=== PATIENT | female | born 1995 | race Caucasian/White ===

== ENCOUNTER 2024-06-14 14:56 | Emergency (ER) | payer SELFPAY ==
[2024-06-14] VITALS (8 sets, daily range): BP systolic 130–157; BP diastolic 82–91; PULSE 61–88; RESP 16–20; TEMP 36.2–36.8; O2SAT 95–100; BMI 26.6
--- NOTE | ~2024-06-14 | XR_ITS ---
EXAMINATION: XR CHEST 2 VIEWS HISTORY: pain COMPARISON: There are no prior studies for comparison. FINDINGS: PA and lateral views of the chest are submitted. The lungs are expanded and clear. There is no pleural effusion, pneumothorax, or pulmonary vascular congestion. The heart is normal in size. The bones are intact. XR/XR chest 2V IMPRESSION: Normal examination of the chest. Electronically signed by: Sumit Perdomo MD 06/14/2024 03:53 PM EDT
--- NOTE | 2024-06-14 15:02 | ED_ITS ---
HPI - General Adult General Chief complaint: Dizziness Stated complaint: Lightheaded, dizziness Time Seen by Provider: 06/14/24 19:10 Source: patient Limitations: no limitations History of Present Illness ED Provider: Mariaelena Rider PA-C HPI narrative: 28-year-old otherwise healthy female presents after near syncopal episode. Patient states she is just getting over viral syndrome, she has not been eating or drinking well. She was sitting in her vehicle, when she felt nauseous. Patient states she felt lightheaded, then sweaty, as if she were going to pass out. The patient states she began to panic, feeling as if ?she was going to ?. 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 Denies preceding palpitations, chest pain or shortness of breath. Related Data Allergies Allergy/AdvReac Type Severity Reaction Status Date / Time No Known Allergies Allergy Verified 06/14/24 15:06 Review of Systems 2 Review of Systems: Yes all other systems are reviewed and are negative Constitutional: Constitutional: Denies fatigue, Denies fever(s) and Reports malaise ENT: Reports dizziness Cardiovascular: Cardiovascular: Denies chest pain, Denies palpitations and Denies dyspnea Respiratory: Respiratory: Denies cough and Denies dyspnea Gastrointestinal: Gastrointestinal: Denies abdominal pain, Reports nausea and Denies vomiting Neurologic: Reports dizziness Endocrine: Endocrine: Denies fatigue and Denies palpitations PMF Past Medical History Attestation statement: The following information was validated with the patient. Social History Social History Smoked in Last 30 Days: No Use of substances other than those prescribed or required for medical reasons: No Advance Directives: No Advance Directives Information Provided: No Patient : No Physical Exam ED Vital Signs: Vital Signs - 24 hr 06/14/24 15:03 06/14/24 17:23 06/14/24 18:44 Temperature 97.5 F 97.1 F 97.6 F Pulse Rate 88 64 70 Respiratory Rate 18 16 16 Blood Pressure 142/86 H 157/82 H 142/83 H Pulse Oximetry 100 99 95 Oxygen Delivery Method Room Air Room Air Room Air 06/14/24 20:18 06/14/24 20:47 06/14/24 20:49 Temperature 97.5 F Pulse Rate 68 61 64 Respiratory Rate 20 Blood Pressure 130/86 138/83 145/87 H Pulse Oximetry 95 Oxygen Delivery Method Room Air 06/14/24 20:50 06/14/24 21:17 Temperature 98.2 F Pulse Rate 75 75 Respiratory Rate 17 Blood Pressure 138/91 H 138/91 H Pulse Oximetry 98 Oxygen Delivery Method Room Air BMI result Body Mass Index 26.6 Const Other: Alert well-appearing Orientation/consciousness: patient oriented x3 Resp Effort & Inspection: normal respiratory effort Cardio Other: Normal peripheral perfusion Skin Other: Warm dry no rash Neuro General: patient oriented x3, gait normal, no focal motor deficits and CN's II- XI intact bilaterally Psych Other: Cooperative Course Course Course Narrative: RME, this is a rapid medical exam performed by Perry Nick please refer to primary provider for complete H&P- 28 year old female presents for evaluation of palliations, anxiousness. She reports that she was waiting in a car when she felt a sudden onset of palpitations, clamminess, and feeling cold. She felt disoriented. This has never happened before. Plan for EKG and labs Medical Decision Making Medical Decision Making MDM Narrative: 28-year-old otherwise healthy female presents after near syncopal episode. Patient states she is just getting over viral syndrome, she has not been eating or drinking well. She was sitting in her vehicle, when she felt nauseous. Patient states she felt lightheaded, then sweaty, as if she were going to pass out. The patient states she began to panic, feeling as if ?she was going to ?. 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 Denies preceding palpitations, chest pain or shortness of breath. No chronic issues History: Per patient I have considered the following differential diagnoses: Anemia, dehydration, electrolyte abnormality, vasovagal syncope, new arrhythmia, orthostatic hypotension Plan: Screening labs were obtained from triage, she is not dehydrated she is not anemic there were no electrolyte abnormalities. She has no new arrhythmia on the EKG, she is not orthostatic. I believe she had a vasovagal episode in the setting of being nauseous and in a hot car. I think this episode precipitated a panic attack. She is young and otherwise healthy and had no concerning preceding symptoms. She can follow up with the primary care provider. I have independently reviewed the following tests: CXR: XR/XR chest 2V IMPRESSION: Normal examination of the chest. Labs: No leukocytosis, not anemic, no electrolyte abnormality, viral panel negative, not EKG: Normal sinus rhythm, rate 88, no ischemic changes no ectopy, QTC 4-1 Lab Data 06/14/24 15:17 06/14/24 15:17 Labs: Lab Results 06/14/24 Range/Units 15:17 WBC 5.5 (4.8-10.8) X10*3/uL RBC 4.51 (4.20-5.50) X10*6/uL Hgb 13.9 (12.0-16.0) g/dl Hct 39.8 (37.0-47.0) % MCV 88.2 (80.0-98.0) fL MCH 30.8 (27.0-33.0) pg MCHC 34.9 (31.0-35.0) g/dl RDW 11.4 (11.0-16.0) % Plt Count 220 (160-400) X10*3/uL MPV 9.7 (9.4-12.3) fL Immature Gran % (Auto) 0.2 (0.0-0.4) % Neut % (Auto) 64.2 (45-73) % Lymph % (Auto) 24.5 (20-40) % [place] % (Auto) 8.2 (2-11) % Eos % (Auto) 2.5 (0-4) % Baso % (Auto) 0.4 (0-2) % Lymph # (Auto) 1.4 (1.2-4.9) X10*3/uL [place] # (Auto) 0.5 (0.1-1.2) X10*3/uL Eos # (Auto) 0.1 (0.0-0.4) X10*3/uL Baso # (Auto) 0.0 (0.0-0.2) X10*3/uL Abs Immat Gran (auto) 0.01 (0.00-0.03) X10*3/uL Absolute Neuts (auto) 3.5 (2.0-8.3) x10*3/uL Absolute Nucleated RBC 0.000 (0.0-0.012) X10*3/uL Nucleated RBC % (auto) 0.0 (0.0-0.2) /100WBC Sodium 142 (135-145) mmol/L Potassium 4.2 (3.3-5.1) mmol/L Chloride 109 H (96-108) mmol/L Carbon Dioxide 25 (22-29) mmol/L Anion Gap 12 (12-20) BUN 11 (9-16) mg/dL Creatinine 0.72 (0.5-1.4) mg/dL Estim Creat Clear Calc 118.1 Estimated GFR > 60 Random Glucose 134 H (60-115) mg/dL Calcium 9.8 (8.4-10.2) mg/dL Magnesium 1.6 (1.6-2.6) mg/dL Total Bilirubin 0.3 (0.0-1.0) mg/dL AST 24 (5-31) U/L ALT 14 (0-31) U/L Alkaline Phosphatase 60 (39-117) U/L Total Protein 8.0 (6.5-8.0) g/dL Albumin 4.1 (3.5-5.0) g/dL Lipase 25 (8-78) U/L Beta HCG, Quant < 2 mIU/mL Influenza Type A (PCR) NEGATIVE (Negative) Influenza Type B (PCR) NEGATIVE (Negative) RSV RNA Qual (PCR) NEGATIVE (Negative) SARS-CoV-2 RNA (RT-PCR) NEGATIVE (Negative) Discharge Plan Discharge Clinical Impression: Vasovagal near syncope Patient Disposition: Home, Self-Care Instructions: Near Syncope (ED) Additional Instructions: All of your screening labs were normal, you were also screened for influenza, RSV and COVID. That was negative as well. The chest x-ray is negative, there were no concerning changes on your EKG. I do feel you were having a near syncopal episode, which could have been induced by nausea, the heat in the car, and or anxiety. See home care instructions. Follow up with your primary care provider as needed. Interventions: ED Discharge Assessment Last Done: 06/14/24 21:17 Discharge Date/Time: 06/14/24 21:18 Print Language: Danish
--- NOTE | 2024-06-14 15:03 | ECG_ITS ---
Test Reason : DIZZINESS/ LIGHTHEADED Blood Pressure : */* mmHG Vent. Rate : 88 BPM Atrial Rate : 88 BPM P-R Int : 156 ms QRS Dur : 76 ms QT Int : 348 ms P-R-T Axes : 53 7 -4 degrees QTcB Int : 421 ms Normal sinus rhythm Possible Left atrial enlargement Borderline ECG No previous ECGs available Referred By: Henrry Nick Electronically Signed By: RENETTA OLIVEIRA
[2024-06-14 15:21] LABS: MANUAL DIFF FLAG NO
[2024-06-14 15:23] LABS: Basophils Percent Auto 0.4 % (0-2); Eosinophils Absolute Auto 0.1 X10*3/uL (0.0-0.4); Eosinophils Percent Auto 2.5 % (0-4); Hematocrit 39.8 % (37.0-47.0); Hemoglobin 13.9 g/dl (12.0-16.0); Imm Gran Abs Auto 0.01 X10*3/uL (0.00-0.03); Imm Gran Pct Auto 0.2 % (0.0-0.4); Lymphocytes Absolute Auto 1.4 X10*3/uL (1.2-4.9); Lymphocytes Percent Auto 24.5 % (20-40); Mean Corpuscular HGB Conc 34.9 g/dl (31.0-35.0); Mean Corpuscular Hemoglobin 30.8 pg (27.0-33.0); Mean Corpuscular Volume 88.2 fL (80.0-98.0); Mean Platelet Volume 9.7 fL (9.4-12.3); Monocytes Absolute Auto 0.5 X10*3/uL (0.1-1.2); Monocytes Percent Auto 8.2 % (2-11); Neutrophils Absolute Auto 3.5 x10*3/uL (2.0-8.3); Neutrophils Percent Auto 64.2 % (45-73); Platelet Count 220 X10*3/uL (160-400); Red Blood Count 4.51 X10*6/uL (4.20-5.50); Red Cell Distribution Width 11.4 % (11.0-16.0); White Blood Count 5.5 X10*3/uL (4.8-10.8)
[2024-06-14 15:48] LABS: Alanine Aminotransferase 14 U/L (0-31); Albumin Level 4.1 g/dL (3.5-5.0); Anion Gap 12 (12-20); Aspartate Amino Transferase 24 U/L (5-31); Bilirubin Total 0.3 mg/dL (0.0-1.0); Blood Urea Nitrogen 11 mg/dL (9-16); Calcium 9.8 mg/dL (8.4-10.2); Carbon Dioxide 25 mmol/L (22-29); Chloride 109 mmol/L (96-108); Creatinine Clr Calc Pharmacy 118.1; Estimated Glomerular Filt Rate > 60; Glucose Random 134 mg/dL (60-115); Lipase 25 U/L (8-78); Magnesium 1.6 mg/dL (1.6-2.6); Potassium 4.2 mmol/L (3.3-5.1); Sodium 142 mmol/L (135-145)
[2024-06-14 15:51] LABS: HCG Quantitative < 2 mIU/mL
[2024-06-14 16:19] LABS: Influenza A PCR NEGATIVE (Negative); Influenza B PCR NEGATIVE (Negative); Resp Syncy Virus RNA Qual PCR NEGATIVE (Negative); SARS COV2 PCR INHOUSE NEGATIVE (Negative)
[2024-06-14 17:36] LABS: Alkaline Phosphatase 60 U/L (39-117)
--- OUTSIDE RECORDS SUMMARY | 2024-06-14 19:37 | XMS_ITS | Data Portability ---
Author Organization [place] - [facility] Address [address] [place] [address] Assessment No assessment recorded. Plan of Treatment Reminders Order Date Submit Date Provider Last Modified By Organization Details Last Modified Time Details Appointments None recorded. Lab SARS CoV 2 RNA (COVID-19), QL, lobster man-PCR, respiratory specimen 2019 [facility], [address] [place], [address], 0 01:38:32 rapid strep group A, throat 2019 [facility], [address] [place], [address], 0 08:52:44 culture, throat 2019 [facility], [address] [place], [address], 0 08:43:01 Referral None recorded. Procedures pulse oximetry (PROC) 2019 [facility], [address] [place], [address], 0 09:26:50 Surgeries None recorded. Imaging XR, hand, 3 or more view - dog bite over 5th mcp joint/proxi mal phalanx [email or web address] (Central Scheduling), [address] [place], [address], 3 08:54:11 Medication Orders Augmentin 875 mg-125 mg tablet [email or web address] [id number], [address] [facility], [place], [place], [id number], 16:30:10 Patient TargetsNo targets recorded. Patient Instructions Encounter Date Encounter Id Patient Instructions Last Modified By Organization Details Last Modified Time 07/13/2019 [id number] Results time jarrod y contact health provider 1 to 2 days after testing to provide update on your health and to discuss your current symptoms Get plenty of rest If symptoms worsen call your PCP If you have any trouble breathing, worsening of symptoms, or are concerned for dehydration seek immediate medical attention or call 911 will call with results of test within 3 to 6 days avaine Not available 07/13/2019 09:26:29 10/12/2022 [id number] You have had an Urgent Care Visit which is designed to address acute issues. It does not represent an exhaustive evaluation of your symptom complex, but is an attempt to treat and manage the most likely cause of your most pressing physical issues. If you are not improved in the time frame that we have discussed, please seek the advice of your PCP who is in a position to order further diagnostic testing and possible specialist consultation. If you are rapidly deteriorating despite the treatment recommendations please do not wait to see your PCP and do proceed to the closest ER where a comprehensive evaluation including consideration to lab and other diagnostic testing as well as consultation is more expeditiously accessible. If you were prescribed medications they have been directly submitted to your pharmacy on file. Please make sure you finish all your medications and if you develop major side effects related to them please do stop taking them and check with your PCP to see if you need to get an alternative medication. If labs or xray were ordered, we will call you with the results if there is any change to your plan of care. You have had an Urgent Care Visit which is designed to address acute issues. It does not represent an exhaustive evaluation of your symptom complex, but is an attempt to treat and manage the most likely cause of your most pressing physical issues. [email or web address] Not available 10/12/2022 16:38:26 Reason for Referral None Reported. Results Created Date Observation Date Name Description Value Unit Range Abnormal Flag Note LastModifiedBy Organization Detail LastModifiedTime 07/13/19 20 07/15/2019 cultu re, throa t throat culture NORMAL THROAT ARLETTE Not Available [facility] [address] [place], [address], 07/15/2019 08:43:01 12/05/19 20 12/05/2019 rapid strep group A, throa t Result negati ve Not Available [facility] [address] [place], [address], 07/13/2019 08:32:17 12/05/19 20 12/05/2019 rapid strep group A, throa t Lot# [id number] Not Available [facility] [address] [place], [address], 07/13/2019 08:32:17 12/05/19 20 12/05/2019 rapid strep group A, throa t Internal Control Valid Not Available [facility] [address] [place], [address], 07/13/2019 08:32:17 Result Notes None recorded. Medical Equipment None Reported. Allergies No known drug allergies Medications Name Sig Start Date Stop Date Status Note LastModified by Organization Details LastModified Time Augmentin 875 mg-125 mg tablet Take 1 tablet every 12 hours by oral route for 10 days. 023 active Not Available Not Available Not Avai lable Vitals Date Recorded Heart rate Oxygen saturation Oxygen saturation in Arterial blood by Pulse oximetry Body temperature Systolic blood pressure Diastolic blood pressure Provider Name and Address Organization Details Last Updated DateTime 3 81 /min 97 % 97 % 99.3 [degF] 118 mm[Hg] 74 mm[Hg] Galina Zapata [facility] 3 16:04:05 Date Recorded Heart rate Respiratory rate Body weight Oxygen saturation Oxygen saturation in Arterial blood by Pulse oximetry Body temperature Systolic blood pressure Diastolic blood pressure Provider Name and Address Organization Details Last Updated DateTime 0 70 /min 16 /min 44446.6 3 g 99 % 99 % 97 [degF] 120 mm[Hg] 70 mm[Hg] Diane Guillen NP [address] [place], [address] [place] [address] 0 08:35:33 Social History None recorded. Functional Status None recorded. Mental Status None recorded. Family History Nothing Reported. Medical History No medical history recorded. Gynecological HistoryNo gynecological history recorded. Obstetrics History GPAL:G 0 P 0 0 0 0 Past Encounters Encounter ID Performer Location Encounter Start Date Encounter Closed Date Diagnosis/Indication Diagnosis SNOMED-CT Code Diagnosis ICD10 Code Diagnosis Note [id number] Rasta Schaeffer III, MD [facility] [address] [place] [address] 07/13/2019 08:13:21 07/13/2019 09:28:21 Cough 28826557 R05 23 year old female non smoker works at [employer] with sore throat, cough and chest tightness for 2 days. Pulse ox 99% Suspected COVID-19 Infection Due to recent exposure and symptoms patient has possible COVID-19 infection. Signs and symptoms discussed with patient. Patient educated to self isolate in a room in their home away from others they live with. Mask if available. Patient advised not to leave house for any reason. Self treatment discussed including tylenol for fever, pain or myalgia; cough cold medication s for symptoms. Patient to check temperatur e daily. Monitor for symptoms of respirator y distress. To check in with PCP via phone with change in symptoms. Nature of disease to cause severe respirator y distress discussed. If needs emergent care to notify EMS or ED or PCP office that they may have COVID to allow for proper PPE and isolation. VS reviewed Acute pharyngitis 107962 003 J02.9 Rapid strep negative Will treat as viral. Instructed pt to do saline gargles, throat lozenges, hydration, rest, tylenol or motrin for discomfort . If symptoms do not improve in 72 hours f/u with PCP [id number] Kendra Scott MD [facility] [address] [place] [phone] 10/12/2022 15:53:15 10/12/2022 16:36:16 Open wound of right hand due to dog bite [id number] S61.451A - no concern for neurovasc compromise - xray right hand ordered, sent to hospital- start augmentin twice daily - reviewed s/s infection and when to RTC- tetanus up to date per patient- rabies vaccines 2 years ago - low risk, but could go to ER for boosters due to new bite- pt does not want to go to ER, will call pcp in AM for discussion and ? order outpatient vaccines- advised to call dispatch for incident reporting- advised to f/u with pcp for recheck this week Health Concerns Section Related Observation LastModified by Organization Detai ls LastModified Time None Recorded Concern Status LastModified by Organization Details LastModified Time None Recorded Advance Directives Directive None Recorded Payers Encounter Date Sequence Insurance Name Policy Number Policy [place] Covered Member ID [place] Member ID Guarantor Name 07/13/2019 1 [facility] Results [employer] - [facility] [id number] Amber Yanez [id number] Amber Yanez 10/12/2022 1 [facility] [id number] Amber Yanez [id number] Amber Yanez Notes Date Note Type Note Provider Name and Address Organization Details Recorded Time 07/13/2019 text/html COVID-19 SymptomsReported bypatient.COVID-19 Signs and Symptomscough worsening;shortness of breath worsening; no fever Contacts and Exposurepotential exposure in specific settings where COVID-19 cases have been reported Quality:dry cough Severity:mild Duration:symptoms lasting 2 days Onset/Timin days ago Associated Symptoms:no sputum production; no wheezing; no fever;sore throat Suitability of residential settingpatient does not have gloves and face masks available; patient have resources to access food and other necessities; patient is able to adhere to hand hygiene and cough etiquette practices sorer throat, cough, head ache. no sob, no fever Rasta Schaeffer III, MD [address] [place] [address], [phone], [facility] 07/13/2019 09:34:14 10/12/2022 text/html 27 yr old female presents today c/o dog bite on right pinky finger. Patient states they were in the [facility] when they tried to look at the tags of a dog running alone when they were bit.-KL patient presents with dog bite to right pinky finger - incident occured ~30 minutes ago. States it was wearing a collar, tried to grab it to read the tags and it bit her. Patient has pain, bleeding is now controlled - has not washed the area. Pt had rabies vaccines ~2 years ago after a cat bite, had tetanus at the same time. Pt has not yet contacted dispatch in her town. Kendra Scott MD [address] [place] [address], [phone], [facility] 10/13/2022 05:22:43 OBGyn Episode No OBEpisode recorded.
--- NOTE | 2024-06-14 20:59 | PC.NURSE ---
orthostatics completed on pt, pt denied dizziness and sob when standing. provider aware.
== END 2024-06-14 21:18 | disposition home or self-care (01) ==
PROVIDERS: Physician Assistant; Emergency Provider Emergency Medicine Emergency Medical Services
DX: R55 Syncope and collapse (principal); R42 Dizziness and giddiness; F41.9 Anxiety disorder, unspecified; F41.0 Panic disorder [episodic paroxysmal anxiety]; R11.0 Nausea; R23.1 Pallor; R53.81 Other malaise; Z03.818 Encounter for observation for suspected exposure to other biological agents ruled out
CPT/HCPCS: 0241U; 36415; 71046; 80053; 83690; 83735; 84702; 85025; 93005; 99283; 99284

== ENCOUNTER → 2024-06-14 15:03 | Outpatient (BNV) | payer SELFPAY | PROVIDERS: Visit Provider Internal Medicine | DX: R42 Dizziness and giddiness (principal); R94.31 Abnormal electrocardiogram [ECG] [EKG] | CPT/HCPCS: 93010 ==

== ENCOUNTER → 2024-06-14 15:04 | Outpatient (BNV) | payer SELFPAY | PROVIDERS: Visit Provider Radiology Diagnostic Radiology | DX: R07.9 Chest pain, unspecified (principal); R42 Dizziness and giddiness | CPT/HCPCS: 71046 ==